=== PATIENT | male | born 1960 | race Caucasian/White ===

== ENCOUNTER 2016-07-26 16:18 | Emergency (ER) | payer OTHER ==
[~2016-07-26] VITALS: Ht 172.7 cm; Wt 113.4 kg
[~2016-07-26 16:18] MED LIST: ALPRAZOLAM0.5 M4 PO; ATORVASTATIN CA40 M1 PO; CLOPIDOGREL75 M1 PO; FUROSEMIDE20 M1 PO; GUAIFENESIN-COD10 ML PO; ISOSORBIDE MONO30 M1 PO; LO-DOSE ASPIRIN81 MG PO; LOSARTAN POTASS25 M1 PO; NEXIUM40 M1 PO; PREDNISONE20 M1 PO; PROAIR HFA8.5 GM INH; TRAMADOL HCL50 M1 PO; ZITHROMAX250 M2 PO; ZOLPIDEM TARTRAT5 M1 PO
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
[2016-07-26] MEDS ORDERED: GABAPENTIN300 M2 PO (18:37)
[2016-07-26] MEDS ORDERED: LISINOPRIL2.5 M1 PO (18:38)
[2016-07-26] MEDS ORDERED: NITROGLYCERIN0.4 M1 SL (18:38)
[2016-07-26] MEDS ORDERED: TRAMADOL HCL50 M1 (18:39)
[2016-07-26] MEDS ORDERED: ZOLPIDEM TARTRAT5 M1 PO (18:39)
[2016-07-26 18:40] VITALS: BP 125/76
[2016-07-26] MEDS ORDERED: PERCOCET 5-3251 EACH PO (18:45)
--- NOTE | 2016-07-26 18:52 | RADIOLOGY REPORT ---
EXAMINATIONS: CHEST 2 VIEWS AND LEFT RIBS CLINICAL INFORMATION: Fall. Assess for fracture. COMPARISON: None. TECHNIQUE: A frontal of the chest was obtained in addition to several views of the left ribs. FINDINGS: There are is a pacemaker from the right chest with apparently intact dual leads. The cardiac silhouette is at the upper limits of normal in size. The mediastinal and hilar contours are unremarkable. There are no pleural effusions or pneumothoraces there are no areas of focal consolidation or contusion. The osseous structures are unremarkable. Specifically, no rib fractures are identified. IMPRESSION: No evidence for acute disease. Specifically, no rib fractures identified.
== END 2016-07-26 19:05 ==
LOC: ERH 16:18
DX: S20.212A Contusion of left front wall of thorax, initial encounter (principal); W00.0XXA Fall on same level due to ice and snow, initial encounter; Y93.9 Activity, unspecified; Y92.9 Unspecified place or not applicable
CPT/HCPCS: 71100-LT